=== PATIENT | female | born 1950 | race African-American/Black ===

== ENCOUNTER 2016-05-09 18:45 | Emergency (ER) | payer OTHER, BC ==
[2016-05-09 19:15] VITALS: TEMP 98.8; BMI 33.5
[2016-05-09] MEDS ORDERED: SODIUM CHLORIDE 1,000 ML IV SCH (19:15)
--- NOTE | 2016-05-09 19:25 | PDOC ---
History of Present Illness - General History Source: Patient Exam Limitations: No Limitations <Ricardo Brown - Last Filed: 05/09/16 21:30> <Marah Ramirez - Last Filed: 05/09/16 21:42> - General Chief Complaint: Chest Pain Stated Complaint: CHEST PAIN Time Seen by Provider: 05/09/16 19:00 - History of Present Illness Initial Comments: 05/09/16 19:20 65 y f htn, dm, hchol; presents to ed c/o cough and chest pain since yesterday. sts she "has the flu". no sob. mild nausea. head ache but no neck pain. chest pain is defined as "through & through. constant. worsened by coughing. no particular improving factors. in ed, in nad. normotensive. speaks in full sentences. no visual or speech changes. no weakness. coughing (dry) in the ed. ( Ricardo Brown) Past History - Past Medical History Diabetes: Yes HTN: Yes Hypercholesterolemia: Yes Other medical history: FIBROMYALGIA - Surgical History Orthopedic Surgery: Yes (Carpal Tunnel) - Psycho/Social/Smoking Cessation Hx Anxiety: No Suicidal Ideation: No Smoking Status: No Smoking History: Never smoked Have you smoked in the past 12 months: No Number of Cigarettes Smoked Daily: 0 Hx Alcohol Use: Yes (occasional) Drug/Substance Use Hx: No Substance Use Type: None Hx Substance Use Treatment: No <Ricardo Brown - Last Filed: 05/09/16 21:30> <Marah Ramirez - Last Filed: 05/09/16 21:42> - Past Medical History Allergies/Adverse Reactions: Allergies Allergy/AdvReac Type Severity Reaction Status Date / Time No Known Allergies Allergy Verified 05/09/16 18:49 Home Medications: Ambulatory Orders Adalimumab [Humira] 40 mg SQ Q7D 05/22/13 Amlodipine Besylate [Norvasc -] 5 mg PO DAILY 05/22/13 Esomeprazole Mag Trihydrate [Nexium] 40 mg PO DAILY 05/22/13 Methotrexate [Mexate -] 25 mg PO Q7D 05/22/13 Sitagliptin Phos/Metformin HCl [Janumet 50-1,000 mg Tablet] 1 each PO DAILY Duloxetine HCl [Cymbalta] 60 mg PO HS 05/09/16 Folic Acid 1 mg PO DAILY 05/09/16 Gabapentin [Neurontin -] 200 mg PO HS 05/09/16 Nabumetone [Relafen -] 500 mg PO DAILY 05/09/16 Pravastatin Sodium 20 mg PO HS 05/09/16 Valsartan/Hydrochlorothiazide [Diovan Hct 160-25 mg Tablet] 1 combo PO DAILY 06/20 Review of Systems - Review of Systems Able to Perform ROS?: Yes Is the patient limited [place]ian proficient: No Constitutional: No: Symptoms Reported HEENTM: No: Symptoms Reported Respiratory: Yes: Symptoms reported, See HPI Cardiac (ROS): Yes: Symptoms Reported, See HPI, Chest Pain ABD/GI: Yes: Symptoms Reported, See HPI, Nausea : No: Symptoms Reported Musculoskeletal: Yes: Symptoms Reported, See HPI, Back Pain Integumentary: No: Symptoms Reported Neurological: No: Symptoms reported All Other Systems: Reviewed and Negative <Ricardo Brown - Last Filed: 05/09/16 21:30> *Physical Exam - Physical Exam General Appearance: Yes: Nourished, Appropriately Dressed. No: Apparent Distress HEENT: positive: Normal ENT Inspection Neck: positive: Supple. negative: Tender, Carotid bruit Respiratory/Chest: positive: Chest Tender (at palpation reproducing that of her cc.), Lungs Clear, Normal Breath Sounds. negative: Respiratory Distress Cardiovascular: positive: Regular Rhythm, Regular Rate Vascular Pulses: Femoral (R): 4+, Femoral (L): 4+, Carotid (R): 4+, Carotid (L) : 4+ Gastrointestinal/Abdominal: positive: Soft. negative: Tender Musculoskeletal: positive: Normal Inspection. negative: CVA Tenderness, Vertebral Tenderness Extremity: positive: Normal Capillary Refill. negative: Pedal Edema Integumentary: positive: Normal Color Neurologic: positive: mold filler plastic dolls II-XII NML intact, Fully Oriented, Alert, Normal Mood/ Affect, Normal Response, Motor Strength 5/5 <Ricardo Brown - Last Filed: 05/09/16 21:30> - Vital Signs Last Vital Signs Temp Pulse Resp BP Pulse Ox 98.8 F 71 18 155/83 99 05/09/16 18:45 05/09/16 20:48 05/09/16 20:48 05/09/16 20:48 05/09/16 20:48 ED Treatment Course - LABORATORY CBC & Chemistry Diagram: 05/09/16 19:30 05/09/16 19:30 <MarcelinoaryaRicardo tom - Last Filed: 05/09/16 21:30> - LABORATORY CBC & Chemistry Diagram: 05/09/16 19:30 05/09/16 19:30 <Marah Ramirez - Last Filed: 05/09/16 21:42> - ADDITIONAL ORDERS Additional order review: Laboratory Results 05/09/16 19:30 Sodium 133 L Potassium 4.0 Chloride 99 Carbon Dioxide 25 Anion Gap 9 BUN 15 Creatinine 0.7 Random Glucose 91 Calcium 9.1 05/09/16 19:30 RBC 3.86 MCV 96.6 H MCHC 32.8 RDW 14.3 MPV 7.7 Neutrophils % 49.6 Lymphocytes % 41.8 H Monocytes % 7.3 Eosinophils % 0.7 Basophils % 0.6 - RADIOLOGY Radiograph Interpretation: 05/09/16 19:44 EXAM#: TYPE/EXAM: RESULT: [id number] RAD/CHEST X-RAY PORTABLE* Chest pain radiating to the back. Portable chest x-ray AP sitting. Since prior chest x-ray dated 05/22/2013, the cardiac silhouette remains within normal limits in size with mild unfolding of the aortic arch. The lung is clear. Mediastinum and visualized osseous structures appear intact Impression: No significant interval change or acute lung disease is present Reported By: Michelle Davies MD 05/09/16 1918 05/09/16 21:41 EXAM#: TYPE/EXAM: RESULT: [id number] CT/ABDOMEN CTA W/WO CONTRAST [id number] CT/ CHEST CTA Chest pain. Rule out dissection CT angiogram of the chest, abdomen and pelvis A pre and post intravenous contrast CT angiogram of the chest, abdomen and pelvis was performed utilizing departmental dissection protocol. 100 mL of Omnipaque 350 was intravenously injected. No prior CT scan of the chest, abdomen and pelvis is available for comparison. The thoracic and abdominal aorta is normally enhanced down through its bifurcation and including both common iliac arteries without evidence of aneurysmal dilatation or dissection. There is normal enhancement of the main pulmonary artery and its proximal bifurcations, bilaterally. The heart is within normal limits in size. No enlarged mediastinal or hilar lymph nodes are identified. Included portion of the lower neck appears unremarkable. The lung is clear. In the abdomen and pelvis, evaluation of the liver, spleen, pancreas, gallbladder, both adrenal glands and both kidneys appear unremarkable. Partially distended stomach limiting evaluation of its wall. There is no evidence of small bowel obstruction. Normal stool burden in the colon without thickening of its wall. Normal-appearing appendix. Moderately distended urinary bladder without thickening of its wall. The uterus is not visualized. Visualized osseous structures appear intact with significant degenerative disc disease at L1-L2 level and mild degenerative disc disease at L2-L3 as well as L3 -L4 level. Impression: Normal enhancement of the thoracic and abdominal aorta down through its bifurcation without evidence of aneurysmal dilatation or dissection. No gross evidence of a pulmonary embolus in the main pulmonary artery and its proximal bifurcations. No acute lung disease is present. No CT evidence of an acute process in the abdomen and pelvis. Reported By: Michelle Davies MD 05/09/162123 (Marah Ramirez) - Medications Given in the ED: ED Medications Discontinued Medications Generic Name Dose Route Start Last Admin Trade Name Freq PRN Reason Stop Dose Admin Ketorolac Tromethamine 30 mg 05/09/16 19:36 05/09/16 19:40 Toradol Injection - IVPUSH 05/09/16 19:37 30 mg ONCE ONE Administration Ondansetron HCl 4 mg 05/09/16 19:36 05/09/16 19:45 Zofran Injection IVPUSH 05/09/16 19:37 4 mg ONCE ONE Administration Progress Note <Ricardo Brown - Last Filed: 05/09/16 21:30> <Marah Ramirez - Last Filed: 05/09/16 21:42> - Progress Note Progress Note: her pain is likely 2/2 cough (msk) cxr/labs will reassess for the need of further imaging BETTER AFTER TORADOL NORMAL LABS NORMAL CHEST AND CTA (Ricardo Brown) *DC/Admit/Observation/Transfer <Ricardo Brown - Last Filed: 05/09/16 21:30> <Marah Ramirez - Last Filed: 05/09/16 21:42> Diagnosis at time of Disposition: Cough, Viral syndrome - Discharge Dispostion Disposition: HOME Condition at time of disposition: Improved - Patient Instructions Additional Instructions: PLENTY OF FLUIDS (WATER) MOTRIN/TYLENOL FOR FEVER OR PAIN REST RETURN IF FEVER, VOMITING, SHORTNESS OF BREATH
[2016-05-09] MEDS ORDERED: ONDANSETRON 4 MG/2 ML VIAL IVPUSH ONE (19:36)
[2016-05-09] MEDS ORDERED: KETOROLAC TROMETHAMINE 30 MG/1 ML VIAL IVPUSH ONE (19:36)
[2016-05-09] MEDS ORDERED: ONDANSETRON 4 MG/2 ML VIAL ONE (19:37)
[2016-05-09] MEDS ORDERED: KETOROLAC TROMETHAMINE 30 MG/1 ML VIAL ONE (19:37)
[2016-05-09 19:48] LABS: BASOPHIL 0.6 % (0-2.0); EOSINOPHIL 0.7 % (0-4.5); MCH 31.7 pg (25.7-33.7); MCHC 32.8 g/dl (32.0-36.0); MEAN CELL VOLUME 96.6 fl (80-96); MEAN PLT VOLUME 7.7 fl (7.5-11.1); NEUTROPHILS 49.6 % (42.8-82.8); PLATELET COUNT 233 K/MM3 (134-434); RDW 14.3 % (11.6-15.6); WHITE BLOOD COUNT 5.4 K/mm3 (4.0-10.0)
[2016-05-09 19:55] LABS: CALCIUM 9.1 mg/dl (8.4-10.2); CREATININE 0.7 mg/dl (0.6-1.3)
[2016-05-09 20:49] VITALS: BP 155/83; PULSE 71
--- NOTE | 2016-05-12 10:15 | EKG ---
Test Reason : Blood Pressure : / mmHG Vent. Rate : 080 BPM Atrial Rate : 080 BPM P-R Int : 150 ms QRS Dur : 076 ms QT Int : 350 ms P-R-T Axes : 032 018 061 degrees QTc Int : 403 ms POOR DATA QUALITY, INTERPRETATION MAY BE ADVERSELY AFFECTED NORMAL SINUS RHYTHM NONSPECIFIC T WAVE ABNORMALITY ABNORMAL ECG WHEN COMPARED WITH ECG OF 22-MAY-2013 11:11, NO SIGNIFICANT CHANGE WAS FOUND Confirmed by BHANU MORAN MD ([id number]) on 05/12/2016 10:15:29 AM Referred By: MD BOLTON Confirmed By:BHANU MORAN MD
== END 2016-05-09 21:45 | disposition home or self-care (01) ==
LOC: FER 18:45
PROC: 3E0333Z Introduction of Anti-inflammatory into Peripheral Vein, Percutaneous Approach (ICD-10-PCS; principal; 2016-05-09)
PROC: 3E033GC Introduction of Other Therapeutic Substance into Peripheral Vein, Percutaneous Approach (ICD-10-PCS; 2016-05-09)
DX: B34.9 Viral infection, unspecified (principal); R05 Cough; I10 Essential (primary) hypertension; E11.9 Type 2 diabetes mellitus without complications; E78.00 Pure hypercholesterolemia, unspecified; M79.7 Fibromyalgia
CPT/HCPCS: 36415; 71010-TC; 71275-TC; 74175-TC; 80048; 85025; 93005; 93010; 96374; 96375; 99285-25

== ENCOUNTER 2020-05-20 09:55 | Emergency (ER) | payer OTHER, BC | END 2020-05-20 11:21 | disposition home or self-care (01) | LOC: JVIRT 09:55 | DX: Z11.52 Encounter for screening for COVID-19 (principal) | CPT/HCPCS: C9803; G2251-GT; U0003 ==

== ENCOUNTER 2021-04-26 09:09 | Emergency (ER) | payer OTHER, BC ==
[2021-04-26 09:20] VITALS: BMI 37.8
[2021-04-26] MEDS ORDERED: SOTROVIMAB 500 MG in SODIUM CHLORIDE 100 ML IVPB ONE (09:50)
[2021-04-26] MEDS ORDERED: ACETAMINOPHEN 1000 MG/100 ML BAG IVPB ONE (09:51)
[2021-04-26] MEDS ORDERED: SODIUM CHLORIDE 1,000 ML IV STA (09:51)
[2021-04-26] MEDS ORDERED: ACETAMINOPHEN INJECTION 100 ML IVPB ONE (10:41)
[2021-04-26 11:55] VITALS: TEMP 97.9
[2021-04-26 13:15] VITALS: BP 141/82; PULSE 76
== END 2021-04-26 13:22 | disposition home or self-care (01) ==
LOC: JER 09:09 → JCOVINFU 09:09
PROC: 3E03329 Introduction of Other Anti-infective into Peripheral Vein, Percutaneous Approach (ICD-10-PCS; principal; 2021-04-26)
PROC: 3E033NZ Introduction of Analgesics, Hypnotics, Sedatives into Peripheral Vein, Percutaneous Approach (ICD-10-PCS; 2021-04-26)
PROC: 3E0337Z Introduction of Electrolytic and Water Balance Substance into Peripheral Vein, Percutaneous Approach (ICD-10-PCS; 2021-04-26)
DX: U07.1 COVID-19 (principal)
CPT/HCPCS: 99284-25; J0131; M0247; Q0247

== ENCOUNTER 2022-01-30 03:05 | Inpatient (IN) | payer OTHER, BC ==
[2022-01-30 03:24] VITALS: BMI 36.8
[2022-01-30] MEDS ORDERED: morphine CARPU-JECT 4 MG/1 ML DISP.SYRIN IVPUSH ONE (04:02)
[2022-01-30] MEDS ORDERED: morphine SULFATE 4 MG/ML VIAL ONE ×2 (04:17→09:41)
[2022-01-30 04:46] LABS: HEMATOCRIT 37.9 % (32.4-45.2); HEMOGLOBIN 12.7 GM/dL (10.7-15.3); MCH 33.7 pg (25.7-33.7); MCHC 33.5 g/dl (32.0-36.0); MEAN CELL VOLUME 100.7 fl (80-96); MEAN PLT VOLUME 7.6 fl (7.5-11.1); PLATELET COUNT 227 10^3/uL (134-434); RBC 3.76 M/mm3 (3.60-5.2); RDW 14.3 % (11.6-15.6); WHITE BLOOD COUNT 4.3 K/mm3 (4.0-10.0)
[2022-01-30 05:06] LABS: ALBUMIN 3.6 g/dl (3.4-5.0); BLOOD UREA NITROGEN 16.4 mg/dL (7-18); CALCIUM 9.5 mg/dL (8.5-10.1)
[2022-01-30 05:11] LABS: BILIRUBIN,TOTAL 0.5 mg/dL (0.2-1); TOT PROT 7.8 g/dl (6.4-8.2)
[2022-01-30 07:07] LABS: ANISOCYTOSIS 1+; MACROCYTOSIS 1+
[2022-01-30] MEDS ORDERED: ACETAMINOPHEN 1000 MG/100 ML BAG IVPB ONE (07:56)
[2022-01-30] MEDS ORDERED: morphine SULFATE 4 MG/ML VIAL IVPUSH ONE (07:56)
[2022-01-30] MEDS ORDERED: ADALIMUMAB 20 MG/0.4 ML SQ SCH (08:00)
[2022-01-30] MEDS ORDERED: ACETAMINOPHEN INJECTION 100 ML IVPB ONE (08:56)
[2022-01-30] MEDS ORDERED: sitaGLIPtin PHOSPHATE 50 MG TABLET ONE (08:56)
[2022-01-30] MEDS ORDERED: HYDROCHLOROTHIAZIDE 25 MG TABLET (FP) ONE (08:56)
[2022-01-30] MEDS ORDERED: metFORMIN HCL 500 MG TABLET (FP) ONE (08:56)
[2022-01-30] MEDS ORDERED: VALSARTAN 80 MG TABLET ONE (08:56)
[2022-01-30] MEDS ORDERED: HEPARIN NA (PORCINE) 5,000 UNITS/ML 1ML VIAL ONE (08:56)
[2022-01-30] MEDS ORDERED: amLODIPine BESYLATE 5 MG TABLET (FP) ONE (08:58)
[2022-01-30] MEDS ORDERED: PANTOPRAZOLE 20 MG TABLET PO ONE (08:59)
[2022-01-30] MEDS: metFORMIN HCL 500 MG TABLET (FP) PO SCH (09:12)
[2022-01-30] MEDS: amLODIPine BESYLATE 5 MG TABLET (FP) PO SCH (09:12)
[2022-01-30] MEDS: PANTOPRAZOLE 40 MG TABLET PO SCH (09:12)
[2022-01-30] MEDS: VALSARTAN 160 MG TABLET PO SCH (09:12)
[2022-01-30] MEDS: HYDROCHLOROTHIAZIDE 25 MG TABLET (FP) PO SCH (09:12)
[2022-01-30] MEDS: sitaGLIPtin PHOSPHATE 50 MG TABLET PO SCH (09:12)
[2022-01-30] MEDS: HEPARIN NA (PORCINE) 5,000 UNITS/ML 1ML VIAL SQ SCH ×2 (09:12→21:43)
[2022-01-30] MEDS ORDERED: FOLIC ACID 1 MG TABLET (FP) ONE (09:41)
[2022-01-30] MEDS: FOLIC ACID 1 MG TABLET (FP) PO SCH (09:42)
[2022-01-30] MEDS ORDERED: PATIENT'S OWN MEDICATION (NON-FORMULARY) (Sitagliptin Phos/Metformin Hcl [Janumet 50-1,000 PO SCH (10:00)
[2022-01-30] MEDS ORDERED: PATIENT'S OWN MEDICATION (NON-FORMULARY) (Valsartan/Hydrochlorothiazide [Diovan Hct 160-25 PO SCH (10:00)
[2022-01-30] MEDS: ACETAMINOPHEN 325 MG TABLET (FP) PO PRN ×2 (12:00→22:30)
[2022-01-30] MEDS ORDERED: ACETAMINOPHEN 325 MG TABLET (FP) ONE (12:03)
[2022-01-30] MEDS ORDERED: oxyCODONE HCL 5 MG TABLET ONE (17:14)
[2022-01-30] MEDS: oxyCODONE HCL 5 MG TABLET PO PRN (17:15)
[2022-01-30] MEDS: DOCUSATE SODIUM 100 MG CAPSULE (FP) PO SCH (21:42)
[2022-01-30] MEDS: ATORVASTATIN CA 10 MG TABLET (FP) PO SCH (21:42)
[2022-01-30] MEDS ORDERED: GABAPENTIN 100 MG CAPSULE PO SCH (22:00)
[2022-01-30] MEDS: DULoxetine HCL 30 MG CAPSULE.DR PO SCH (22:30)
[2022-01-31] MEDS: oxyCODONE HCL 5 MG TABLET PO PRN ×3 (01:10→20:19)
[2022-01-31] MEDS: DOCUSATE SODIUM 100 MG CAPSULE (FP) PO SCH ×2 (03:44→21:18)
[2022-01-31] MEDS: IBUPROFEN 400 MG TABLET (FP) PO PRN ×2 (05:43→14:51)
[2022-01-31] MEDS: sitaGLIPtin PHOSPHATE 50 MG TABLET PO SCH (08:42)
[2022-01-31] MEDS: metFORMIN HCL 500 MG TABLET (FP) PO SCH (08:42)
[2022-01-31] MEDS: amLODIPine BESYLATE 5 MG TABLET (FP) PO SCH (10:00)
[2022-01-31] MEDS: VALSARTAN 160 MG TABLET PO SCH (10:00)
[2022-01-31] MEDS: FOLIC ACID 1 MG TABLET (FP) PO SCH (10:00)
[2022-01-31] MEDS: HYDROCHLOROTHIAZIDE 25 MG TABLET (FP) PO SCH (10:00)
[2022-01-31] MEDS: PANTOPRAZOLE 40 MG TABLET PO SCH (10:00)
[2022-01-31] MEDS: HEPARIN NA (PORCINE) 5,000 UNITS/ML 1ML VIAL SQ SCH ×2 (10:00→21:18)
[2022-01-31] MEDS: GABAPENTIN 300 MG CAPSULE PO SCH ×2 (14:47→21:19)
[2022-01-31] MEDS: methylPREDNISolone NA SUCC 40 MG/1 ML VIAL IVPUSH SCH (14:47)
[2022-01-31] MEDS: CARBIDOPA/LEVODOPA 25/100 TABLET (FP) PO SCH ×2 (14:47→21:18)
[2022-01-31] MEDS ORDERED: ADALIMUMAB 20 MG/0.4 ML SQ SCH ×2 (16:30→16:45)
[2022-01-31] MEDS: ACETAMINOPHEN 325 MG TABLET (FP) PO PRN (18:47)
[2022-01-31] MEDS: ATORVASTATIN CA 10 MG TABLET (FP) PO SCH (21:18)
[2022-01-31] MEDS: DULoxetine HCL 30 MG CAPSULE.DR PO SCH (21:18)
[2022-02-01] MEDS: IBUPROFEN 400 MG TABLET (FP) PO PRN ×2 (02:29→12:44)
[2022-02-01] MEDS: GABAPENTIN 300 MG CAPSULE PO SCH ×3 (06:42→21:21)
[2022-02-01] MEDS: CARBIDOPA/LEVODOPA 25/100 TABLET (FP) PO SCH ×3 (06:42→21:21)
[2022-02-01] MEDS: sitaGLIPtin PHOSPHATE 50 MG TABLET PO SCH (07:20)
[2022-02-01] MEDS: metFORMIN HCL 500 MG TABLET (FP) PO SCH (07:20)
[2022-02-01] MEDS: oxyCODONE HCL 5 MG TABLET PO PRN ×2 (08:31→21:22)
[2022-02-01 10:33] LABS: BASO % 0.2 % (0-2.0); EOS % 0.1 % (0-4.5); HEMATOCRIT 37.2 % (32.4-45.2); HEMOGLOBIN 12.8 GM/dL (10.7-15.3); LYMPH % 65.2 % (8-40); MCH 34.1 pg (25.7-33.7); MCHC 34.4 g/dl (32.0-36.0); MEAN CELL VOLUME 99.2 fl (80-96); MEAN PLT VOLUME 7.5 fl (7.5-11.1); MONO % 2.6 % (3.8-10.2); NEUT % 31.9 % (42.8-82.8); PLATELET COUNT 233 10^3/uL (134-434); RBC 3.75 M/mm3 (3.60-5.2); RDW 13.8 % (11.6-15.6); WHITE BLOOD COUNT 6.1 K/mm3 (4.0-10.0)
[2022-02-01 10:48] LABS: CHLORIDE 100 mmol/L (98-107); SODIUM 138 mmol/L (136-145)
[2022-02-01] MEDS: methylPREDNISolone NA SUCC 40 MG/1 ML VIAL IVPUSH SCH (10:48)
[2022-02-01] MEDS: FOLIC ACID 1 MG TABLET (FP) PO SCH (10:48)
[2022-02-01] MEDS: VALSARTAN 160 MG TABLET PO SCH (10:48)
[2022-02-01] MEDS: HYDROCHLOROTHIAZIDE 25 MG TABLET (FP) PO SCH (10:48)
[2022-02-01] MEDS: amLODIPine BESYLATE 5 MG TABLET (FP) PO SCH (10:48)
[2022-02-01] MEDS: HEPARIN NA (PORCINE) 5,000 UNITS/ML 1ML VIAL SQ SCH ×2 (10:48→21:22)
[2022-02-01 10:49] LABS: ANION GAP 9 MMOL/L (8-16); CALCIUM 9.3 mg/dL (8.5-10.1); CO2 29 mmol/L (21-32); GLUCOSE,RANDOM 131 mg/dL (74-106)
[2022-02-01 10:51] LABS: ALBUMIN 3.5 g/dl (3.4-5.0)
[2022-02-01] MEDS: PANTOPRAZOLE 40 MG TABLET PO SCH (10:52)
[2022-02-01 10:53] LABS: CREATININE 0.8 mg/dL (0.55-1.3); SGOT/AST 121 U/L (15-37); SGPT/ALT 27 U/L (13-61)
[2022-02-01 10:55] LABS: ALK PHOS 100 U/L (45-117); BILIRUBIN,TOTAL 0.4 mg/dL (0.2-1); TOT PROT 7.9 g/dl (6.4-8.2)
[2022-02-01 11:05] LABS: ERYTHROCYTE SEDIMENTATION RATE 53 mm/hr (0-30)
[2022-02-01 11:25] LABS: ANISOCYTOSIS 0; HELMET CELLS 0; HOWELL-JOLLY BODIES 0; MACROCYTOSIS 0; OVALOCYTE 0; ROULEAU 0; SICKELED CELLS 0; TARGET CELLS 0; TEAR DROP CELLS 0; TOXIC GRANULATION 0
[2022-02-01] MEDS ORDERED: MAG HYDROX/AL HYDROX/SIMETH 30 ML UNIT-DOSE CUP PO PRN (12:44)
[2022-02-01] MEDS: DOCUSATE SODIUM 100 MG CAPSULE (FP) PO SCH (21:21)
[2022-02-01] MEDS: ATORVASTATIN CA 10 MG TABLET (FP) PO SCH (21:21)
[2022-02-01] MEDS: DULoxetine HCL 30 MG CAPSULE.DR PO SCH (21:21)
[2022-02-02] MEDS: IBUPROFEN 400 MG TABLET (FP) PO PRN ×2 (01:41→22:36)
[2022-02-02] MEDS: CARBIDOPA/LEVODOPA 25/100 TABLET (FP) PO SCH ×3 (06:18→22:33)
[2022-02-02] MEDS: sitaGLIPtin PHOSPHATE 50 MG TABLET PO SCH (06:18)
[2022-02-02] MEDS: metFORMIN HCL 500 MG TABLET (FP) PO SCH (06:18)
[2022-02-02] MEDS: GABAPENTIN 300 MG CAPSULE PO SCH ×3 (06:18→22:33)
[2022-02-02] MEDS: FOLIC ACID 1 MG TABLET (FP) PO SCH (10:07)
[2022-02-02] MEDS: HYDROCHLOROTHIAZIDE 25 MG TABLET (FP) PO SCH (10:07)
[2022-02-02] MEDS: PANTOPRAZOLE 40 MG TABLET PO SCH (10:07)
[2022-02-02] MEDS: HEPARIN NA (PORCINE) 5,000 UNITS/ML 1ML VIAL SQ SCH ×3 (10:08→22:34)
[2022-02-02] MEDS: methylPREDNISolone NA SUCC 40 MG/1 ML VIAL IVPUSH SCH (10:08)
[2022-02-02] MEDS: VALSARTAN 160 MG TABLET PO SCH (10:08)
[2022-02-02] MEDS: amLODIPine BESYLATE 5 MG TABLET (FP) PO SCH (10:08)
[2022-02-02 10:33] LABS: HEMATOCRIT 38.4 % (32.4-45.2); MCHC 33.8 g/dl (32.0-36.0); MEAN CELL VOLUME 100.7 fl (80-96); MEAN PLT VOLUME 7.4 fl (7.5-11.1); PLATELET COUNT 239 10^3/uL (134-434); RBC 3.82 M/mm3 (3.60-5.2); RDW 13.7 % (11.6-15.6); WHITE BLOOD COUNT 7.2 K/mm3 (4.0-10.0)
[2022-02-02 10:53] LABS: BLOOD UREA NITROGEN 17.3 mg/dL (7-18); CALCIUM 9.1 mg/dL (8.5-10.1)
[2022-02-02 10:55] LABS: ALBUMIN 3.4 g/dl (3.4-5.0)
[2022-02-02 10:57] LABS: CREATININE 0.8 mg/dL (0.55-1.3)
[2022-02-02 10:59] LABS: BILIRUBIN,TOTAL 0.3 mg/dL (0.2-1); TOT PROT 7.9 g/dl (6.4-8.2)
[2022-02-02 12:11] LABS: ANISOCYTOSIS 1+; MACROCYTOSIS 1+
[2022-02-02] MEDS: ACETAMINOPHEN 325 MG TABLET (FP) PO PRN (14:28)
[2022-02-02] MEDS: ATORVASTATIN CA 10 MG TABLET (FP) PO SCH (22:33)
[2022-02-02] MEDS: DULoxetine HCL 30 MG CAPSULE.DR PO SCH (22:33)
[2022-02-02] MEDS: DOCUSATE SODIUM 100 MG CAPSULE (FP) PO SCH (22:33)
[2022-02-03 01:37] VITALS: RESP 16
[2022-02-03] MEDS: GABAPENTIN 300 MG CAPSULE PO SCH ×2 (05:51→14:54)
[2022-02-03] MEDS: metFORMIN HCL 500 MG TABLET (FP) PO SCH ×2 (05:52→06:21)
[2022-02-03] MEDS: sitaGLIPtin PHOSPHATE 50 MG TABLET PO SCH ×2 (05:52→06:21)
[2022-02-03] MEDS: CARBIDOPA/LEVODOPA 25/100 TABLET (FP) PO SCH ×2 (05:52→14:54)
[2022-02-03] MEDS: amLODIPine BESYLATE 5 MG TABLET (FP) PO SCH (09:25)
[2022-02-03] MEDS: HYDROCHLOROTHIAZIDE 25 MG TABLET (FP) PO SCH (09:25)
[2022-02-03] MEDS: VALSARTAN 160 MG TABLET PO SCH (09:25)
[2022-02-03] MEDS: FOLIC ACID 1 MG TABLET (FP) PO SCH (09:25)
[2022-02-03] MEDS: PANTOPRAZOLE 40 MG TABLET PO SCH (09:25)
[2022-02-03] MEDS: methylPREDNISolone NA SUCC 40 MG/1 ML VIAL IVPUSH SCH (09:26)
[2022-02-03] MEDS: HEPARIN NA (PORCINE) 5,000 UNITS/ML 1ML VIAL SQ SCH (09:26)
[2022-02-03] MEDS: IBUPROFEN 400 MG TABLET (FP) PO PRN (11:28)
[2022-02-03 12:56] VITALS: BP 125/74; PULSE 79; TEMP 98
[2022-02-03] MEDS: ACETAMINOPHEN 325 MG TABLET (FP) PO PRN (14:54)
[2022-02-05] MEDS ORDERED: METHOTREXATE 2.5 MG TABLET PO SCH (10:00)
== END 2022-02-03 17:33 | disposition home or self-care (01) | DRG 74 ==
LOC: JER 03:05 → JERBED 04:26 → J5S 20:04
PROVIDERS: ADMIT Internal Medicine; ATTEND Internal Medicine
DX: M79.2 Neuralgia and neuritis, unspecified (principal); M48.061 Spinal stenosis, lumbar region without neurogenic claudication; E11.9 Type 2 diabetes mellitus without complications; M79.7 Fibromyalgia; G20 Parkinson's disease; M76.811 Anterior tibial syndrome, right leg; E78.5 Hyperlipidemia, unspecified; M76.812 Anterior tibial syndrome, left leg; I10 Essential (primary) hypertension; K21.9 Gastro-esophageal reflux disease without esophagitis
CPT/HCPCS: 36415; 71045-TC-FY; 72148-TC; 73590-TC-LT-FY; 73590-TC-RT-FY; 78306-TC; 80053; 82607; 82962; 84155; 84165; 84439; 84443; 84481; 85025; 85651; 86140; 93005; 93010; 93970-TC; 97116-GP; 97161-GP; 99285-25; A9503; C9803-CS; J1644; U0003; U0005

== ENCOUNTER 2024-01-04 19:07 | Emergency (ER) | payer OTHER, BC ==
[2024-01-04 19:28] VITALS: BP 147/77; PULSE 82; RESP 18; TEMP 97.6; BMI 34.3
[2024-01-04] MEDS ORDERED: METHOCARBAMOL 500 MG TABLET ONE (20:45)
[2024-01-04] MEDS ORDERED: DEXAMETHASONE SOD PHOSPHATE 10 MG/1 ML VIAL ONE (20:45)
[2024-01-04] MEDS ORDERED: LIDOCAINE 4% PATCH TP ONE ×2 (20:45→21:40)
[2024-01-04] MEDS ORDERED: KETOROLAC TROMETHAMINE 30 MG/1 ML VIAL ONE (20:46)
[2024-01-04] MEDS: LIDOCAINE 5% TOPICAL PATCH TP ONE (21:00)
[2024-01-04] MEDS: KETOROLAC TROMETHAMINE 30 MG/1 ML VIAL IM ONE (21:00)
[2024-01-04] MEDS: METHOCARBAMOL 500 MG TABLET PO ONE (21:00)
[2024-01-04] MEDS: DEXAMETHASONE SOD PHOSPHATE 10 MG/1 ML VIAL IM ONE (21:00)
[2024-01-04] MEDS ORDERED: ACETAMINOPHEN 500 MG TABLET (FP) ONE (21:38)
[2024-01-04] MEDS: ACETAMINOPHEN 500 MG TABLET (FP) PO ONE (21:44)
[2024-01-04] MEDS: LIDOCAINE 4% PATCH TP ONE (21:44)
[2024-01-04] MEDS: LIDOCAINE PATCH REMOVAL MC SCH ×2 (22:09→22:10)
[2024-01-04] MEDS: oxyCODONE HCL 5 MG TABLET PO ONE (23:28)
== END 2024-01-04 23:50 | disposition home or self-care (01) ==
LOC: JER 19:07
PROC: 3E0233Z Introduction of Anti-inflammatory into Muscle, Percutaneous Approach (ICD-10-PCS; principal; 2024-01-04)
PROC: 3E023GC Introduction of Other Therapeutic Substance into Muscle, Percutaneous Approach (ICD-10-PCS; 2024-01-04)
DX: M79.604 Pain in right leg (principal)
CPT/HCPCS: 73562-TC-RT-FY; 99284-25; J1100